=== PATIENT | female | born 1955 | race Caucasian/White ===

== ENCOUNTER → 2022-02-21 | Outpatient (CLI) | payer MEDICARE, MEDICAID ==
[~2022-02-21] MED LIST: ALBUTEROL; BUDE6HFA; DIGO125T80; DILT360C30; GADOTERATE MEGLUMINE 5 MMOL/10 ML VIAL IV ONE; KETO-20 PO; LOP25; METF-414; WARF5TAB76
== END | disposition home or self-care (01) ==
LOC: MRI 10:50
PROVIDERS: ATTEND Neurological Surgery
DX: D32.0 Benign neoplasm of cerebral meninges (principal); R51.9 Headache, unspecified
CPT/HCPCS: 70553; A9577